=== PATIENT | female | born 1980 | race Caucasian/White ===

== ENCOUNTER 2016-11-06 16:46 | Emergency (ER) | payer OTHER ==
[2016-11-06 17:13] VITALS: BP 116/66
--- NOTE | 2016-11-06 18:03 | UC ---
Ear Complaint HPI - HPI Summary HPI Summary: right ear discomfort and vertigo. Started a few days ago. Similar symptoms in past with OM. She has noted yellowish drainage on Q-tip. No fever. MIld ST. Room spins when she turns head to the left. - History of Current Complaint Chief Complaint: UCGeneralIllness Stated Complaint: DIZZY,EAR PAIN Time Seen by Provider: 11/06/16 17:51 Hx Obtained From: Patient, Family/Cooler Supervisor Hx Last Menstrual Period: n/a ?: No Onset/Duration: Gradual Onset, Lasting Days - 2 Severity Initially: Mild Severity Currently: Mild Aggravating Factors: Nothing Alleviating Factors: Nothing Associated Signs/Symptoms: Positive: Discharge - right ear, URI Symptoms - mild ST. Negative: Hearing Loss, Foreign Body Sensation, Trauma to Ear, Swelling @ - Allergies/Home Medications Allergies/Adverse Reactions: Allergies Allergy/AdvReac Type Severity Reaction Status Date / Time Latex Allergy Intermediate Hives Verified 11/06/16 17:13 Morphine Allergy Hives Verified 11/06/16 17:13 NSAIDs Allergy Unknown Verified 11/06/16 17:13 Reaction Details Aspartame AdvReac Intermediate Vomiting Verified 11/06/16 17:13 Erythromycin AdvReac VOMITING/DI Verified 11/06/16 17:13 ARRHEA avoids ibuprofen Allergy See Comment Uncoded 11/06/16 17:13 PMH/Surg Hx/FS Hx/Imm Hx Cardiovascular History Of: Reports: Hypertension - gestational Respiratory History Of: Reports: Asthma - Surgical History Surgical History: Yes Surgery Procedure, Year, and Place: SINUS SURGERY, CSECTION, DISC NEOPLASTY, gallbladder; 01/19/14 IUD removed, uterine polypectomy, D and C; hysterectomy 2013, Gastric bypass 05/17 - Family History Known Family History: Positive: Hypertension - Social History 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 Psychological: Negative All Other Systems Reviewed And Are Negative: Yes Physical Exam Triage Information Reviewed: Yes Appearance: Well-Appearing, No Pain Distress, Well-Nourished Vital Signs: Initial Vital Signs Temp 97.9 F 11/06/16 17:09 Pulse 79 11/06/16 17:09 Resp 16 11/06/16 17:09 BP 116/66 11/06/16 17:09 Pulse Ox 100 11/06/16 17:09 Vital Signs Reviewed: Yes Eye Exam: Normal Eyes: Positive: Conjunctiva Clear ENT: Positive: Hearing grossly normal, Pharynx normal, TMs normal, Other: - right canal slightly inflamed and swollen. No drainage in either canal Neck exam: Normal Respiratory Exam: Normal Cardiovascular Exam: Normal Musculoskeletal Exam: Normal Neurological Exam: Normal Psychological Exam: Normal Skin Exam: Normal Ear Complaint Course/Dx - Differential Dx/Diagnosis Provider Diagnoses: right OM Discharge - Discharge Plan Condition: Stable Disposition: HOME Prescriptions: Cephalexin CAP* [Keflex CAP*] 500 mg PO TID #30 cap Meclizine HCl [Meclizine 25] 25 mg PO TID PRN #20 tab PRN Reason: Vertigo Patient Education Materials: Otitis Media (ED) Forms: *Work Release Referrals: Renee Wolf MD [Primary Care Provider] -
== END 2016-11-06 18:04 | disposition home or self-care (01) ==
LOC: UCCORT 16:46
DX: H66.91 Otitis media, unspecified, right ear (principal); Z88.5 Allergy status to narcotic agent; Z88.6 Allergy status to analgesic agent; Z88.1 Allergy status to other antibiotic agents; J45.909 Unspecified asthma, uncomplicated
CPT/HCPCS: 99212; G0463

== ENCOUNTER 2016-12-22 11:37 | Emergency (ER) | payer OTHER ==
[2016-12-22 12:31] VITALS: BP 117/70
--- NOTE | 2016-12-22 13:47 | UC ---
Throat Pain/Nasal Michael HPI - HPI Summary HPI Summary: TWO WEEKS AGO HAD SORE THROAT EAR FULLNESS, RETURNED YESTERDAY WITH LARYNGITIS, EAR PRESSURE; EXPOSED TO STREP NO FEVER - History of Current Complaint Chief Complaint: UCRespiratory Stated Complaint: SORE THROAT Time Seen by Provider: 12/22/16 12:31 Hx Obtained From: Patient Hx Last Menstrual Period: n/a Onset/Duration: Sudden Onset, Lasting Weeks, Worse Since - YESTERDAY Cough: None Associated Signs & Symptoms: Positive: Dysphagia, Sinus Discomfort - Allergies/Home Medications Allergies/Adverse Reactions: Allergies Allergy/AdvReac Type Severity Reaction Status Date / Time Latex Allergy Intermediate Hives Verified 12/22/16 12:32 Cephalexin Allergy See Comment Verified 12/22/16 12:32 Morphine Allergy Hives Verified 12/22/16 12:32 NSAIDs Allergy Unknown Verified 12/22/16 12:32 Reaction Details Aspartame AdvReac Intermediate Vomiting Verified 12/22/16 12:32 Erythromycin AdvReac VOMITING/DI Verified 12/22/16 12:32 ARRHEA avoids ibuprofen Allergy See Comment Uncoded 12/22/16 12:32 PMH/Surg Hx/FS Hx/Imm Hx Previously Healthy: Yes Cardiovascular History Of: Reports: Hypertension - gestational Respiratory History Of: Reports: Asthma - Surgical History Surgical History: Yes Surgery Procedure, Year, and Place: SINUS SURGERY, CSECTION, DISC NEOPLASTY, gallbladder; 01/19/14 IUD removed, uterine polypectomy, D and C; hysterectomy 2013, Gastric bypass 05/17 - Family History Known Family History: Positive: Hypertension - Social History Occupation: Employed Full-time Lives: With Family Alcohol Use: Rare Substance Use Type: Excessive Caffeine Smoking Status (MU): Never Smoked Tobacco Household Exposure Type: Cigarettes - Immunization History Most Recent Influenza Vaccination: none Review of Systems Constitutional: Negative Skin: Negative Eyes: Negative ENT: Sore Throat, Ear Ache Respiratory: Negative Cardiovascular: Negative Gastrointestinal: Negative Genitourinary: Negative Motor: Negative Neurovascular: Negative Musculoskeletal: Negative Neurological: Negative Psychological: Negative All Other Systems Reviewed And Are Negative: Yes Physical Exam Triage Information Reviewed: Yes Appearance: Well-Appearing, No Pain Distress, Well-Nourished Vital Signs: Initial Vital Signs Temp 97.3 F 12/22/16 12:28 Pulse 64 12/22/16 12:28 Resp 16 12/22/16 12:28 BP 117/70 02/19/17 12:28 Pulse Ox 100 12/22/16 12:28 Vital Signs Reviewed: Yes Eye Exam: Normal ENT: Positive: Pharyngeal erythema, TM bulging, TM dull, TM red Dental Exam: Normal Neck: Positive: Supple, Tenderness @ - AT BILAT ANT CERVICAL CHAIN LNS, Enlarged Nodes @ - BILAT ANTERIOR CERVICAL LN. Negative: Nuchal Rigidity Respiratory Exam: Normal Respiratory: Positive: Chest non-tender, Lungs clear, Normal breath sounds, No respiratory distress, No accessory muscle use Cardiovascular Exam: Normal Cardiovascular: Positive: RRR, No Murmur, Pulses Normal, Brisk Capillary Refill Abdominal Exam: Normal Abdomen Description: Positive: Nontender, No Organomegaly Musculoskeletal Exam: Normal Musculoskeletal: Positive: Strength Intact, ROM Intact Neurological Exam: Normal Psychological Exam: Normal Psychological: Positive: Normal Response To Family Skin Exam: Normal Throat Pain/Nasal Course/Dx - Differential Dx/Diagnosis Differential Diagnosis/HQI/PQRI: Otitis Media, Peritonsillar Abscess, Pharyngitis, Sinusitis, URI Provider Diagnoses: SINUSITIS. LARYNGITIS. BILATERAL OTITIS SEROUS Discharge - Discharge Plan Condition: Stable Disposition: HOME Prescriptions: Amoxicillin/Clavulanate TAB* [Augmentin TAB 875*] 875 mg PO BID #20 tab Patient Education Materials: Sinusitis (ED), Laryngitis (ED), Serous Otitis Media (ED) Referrals: Renee Wolf MD [Primary Care Provider] -
== END 2016-12-22 14:00 | disposition home or self-care (01) ==
LOC: UCCORT 11:37
DX: J32.9 Chronic sinusitis, unspecified (principal); J04.0 Acute laryngitis; H65.93 Unspecified nonsuppurative otitis media, bilateral; Z88.6 Allergy status to analgesic agent; Z88.1 Allergy status to other antibiotic agents; Z88.5 Allergy status to narcotic agent; Z98.84 Bariatric surgery status; Z90.49 Acquired absence of other specified parts of digestive tract; Z77.22 Contact with and (suspected) exposure to environmental tobacco smoke (acute) (chronic)
CPT/HCPCS: 99212; G0463

== ENCOUNTER 2018-01-12 10:00 | Emergency (ER) | payer OTHER ==
[2018-01-12 10:55] VITALS: BP 133/82
--- NOTE | 2018-01-12 11:37 | ED ---
Back Pain - HPI Summary HPI Summary: 37 yr old female with low back pain. Onset of pain this morning upon waking up. She has a history of low back pain, sciatic pain in the past. She has a history of morbid obesity that was corrected with bariatric surgery. The patient complains of pain that is is moderate/severe, low back that radiates down the back of the left leg into the calf, but today also to the left anterior thigh which is a new feature for her. She denies bowel or bladder incontinence. No falls or injuries. She had prior disk surgery over a decade ago in [place]. - History of Current Complaint Chief Complaint: UCLowerExtremity Stated Complaint: BACK PAIN Time Seen by Provider: 01/12/18 11:00 Hx Last Menstrual Period: HYSTERECTOMY Pain Intensity: 8 - Allergies/Home Medications Allergies/Adverse Reactions: Allergies Allergy/AdvReac Type Severity Reaction Status Date / Time MS Latex [Latex] Allergy Intermediate Hives Verified 12/22/16 12:32 MS Cephalexin [Cephalexin] Allergy See Comment Verified 12/22/16 12:32 MS Morphine [Morphine] Allergy Hives Verified 12/22/16 12:32 MS NSAIDs [NSAIDs] Allergy Unknown Verified 12/22/16 12:32 Reaction Details MS Aspartame [Aspartame] AdvReac Intermediate Vomiting Verified 12/22/16 12:32 MS Erythromycin AdvReac VOMITING/DI Verified 12/22/16 12:32 [Erythromycin] ARRHEA avoids ibuprofen Allergy See Comment Uncoded 12/22/16 12:32 Home Medications: Home Medications Back Aid 01/12/18 [History] PMH/Surg Hx/FS Hx/Imm Hx Cardiovascular History: Reports: Hx Hypertension - gestational Respiratory History: Reports: Hx Asthma - Surgical History Surgery Procedure, Year, and Place: SINUS SURGERY, CSECTION, DISC NEOPLASTY, gallbladder; 01/19/14 IUD removed, uterine polypectomy, D and C; hysterectomy 2013, Gastric bypass 05/17 Infectious Disease History: No Infectious Disease History: Denies: Traveled Outside the [place] in Last 30 Days - Family History Known Family History: Positive: Hypertension - Social History Alcohol Use: Rare Substance Use Type: Reports: None Smoking Status (MU): Never Smoked Tobacco Review of Systems Constitutional: Negative Positive: Other - back apin Negative: Numbness All Other Systems Reviewed And Are Negative: Yes Physical Exam Triage Information Reviewed: Yes Vital Signs On Initial Exam: Initial Vitals Temp Pulse Resp BP Pulse Ox 97.0 F 69 16 133/82 100 01/12/18 10:49 01/12/18 10:49 01/12/18 10:49 01/12/18 10:49 01/12/18 10:49 Vital Signs Reviewed: Yes Appearance: Positive: Well-Appearing, No Pain Distress Skin: Positive: Warm, Skin Color Reflects Adequate Perfusion Head/Face: Positive: Normal Head/Face Inspection Eyes: Positive: EOMI Neck: Positive: Nontender Respiratory/Lung Sounds: Positive: Clear to Auscultation, Breath Sounds Present Cardiovascular: Positive: RRR Musculoskeletal: Positive: Other - positive straight leg left lower extremity. No focal TLS tenderness. No CVA tenderness. Neurological: Positive: Sensory/Motor Intact, Alert, Oriented to Person Place, Time, CN Intact II-III, Normal Gait, Speech Normal Psychiatric: Positive: Normal - Arvilla Coma Scale Best Eye Response: 4 - Spontaneous Best Motor Response: 6 - Obeys Commands Best Verbal Response: 5 - Oriented Coma Scale Total: 15 Diagnostics - Vital Signs Vital Signs Temp Pulse Resp BP Pulse Ox 01/12/18 10:49 97.0 F 69 16 133/82 100 - Laboratory Lab Statement: Any lab studies that have been ordered have been reviewed, and results considered in the medical decision making process. Back Pain Course/Dx - Course Course Of Treatment: 37 yr old with new feature to her back pain, and no MRI in many years. I have told her to go to the ER for further evaluation now. - Diagnoses Provider Diagnoses: Back pain Discharge - Discharge Plan Condition: Good Disposition: HOME Patient Education Materials: Back Pain (ED) Referrals: Renee Wolf MD [Primary Care Provider] - 1 Day Additional Instructions: You should go to the ER now for further evaluation of your back pain. You need MRI done.
== END 2018-01-12 11:35 | disposition home or self-care (01) ==
LOC: UCCORT 10:00
DX: M54.5 Low back pain (principal); J45.909 Unspecified asthma, uncomplicated; Z90.710 Acquired absence of both cervix and uterus; Z98.84 Bariatric surgery status; Z90.49 Acquired absence of other specified parts of digestive tract; Z88.5 Allergy status to narcotic agent; Z88.6 Allergy status to analgesic agent; Z88.1 Allergy status to other antibiotic agents; Z91.040 Latex allergy status
CPT/HCPCS: 99212; G0463

== ENCOUNTER 2018-02-18 12:36 | Emergency (ER) | payer OTHER ==
[2018-02-18 13:26] VITALS: BP 110/57
--- NOTE | 2018-02-18 13:57 | UC ---
Complaint Female HPI - HPI Summary HPI Summary: Starting today she has had urinary frequency, urgency and hematuria. No flank pain, fevers or vomiting. No frequent UTIs. No vaginal discharge. - History Of Current Complaint Chief Complaint: UCGU Stated Complaint: URINARY Time Seen by Provider: 02/18/18 13:42 Hx Obtained From: Patient Hx Last Menstrual Period: 2013 Onset/Duration: Gradual Onset, Lasting Hours, Lasting Weeks Timing: Constant, Lasting Hours Severity Initially: Moderate Severity Currently: Moderate Pain Intensity: 2 Aggravating Factor(s): Urination Alleviating Factor(s): Nothing Associated Signs And Symptoms: Negative: Fever, Back Pain, Vaginal Bleeding/ Discharge, Vaginal Discharge, Nausea, Vomiting(# Of Episodes =) - Allergies/Home Medications Allergies/Adverse Reactions: Allergies Allergy/AdvReac Type Severity Reaction Status Date / Time MS Latex [Latex] Allergy Intermediate Hives Verified 12/22/16 12:32 MS Cephalexin [Cephalexin] Allergy See Comment Verified 12/22/16 12:32 MS Morphine [Morphine] Allergy Hives Verified 12/22/16 12:32 MS NSAIDs [NSAIDs] Allergy Unknown Verified 12/22/16 12:32 Reaction Details MS Aspartame [Aspartame] AdvReac Intermediate Vomiting Verified 12/22/16 12:32 MS Erythromycin AdvReac VOMITING/DI Verified 12/22/16 12:32 [Erythromycin] ARRHEA avoids ibuprofen Allergy See Comment Uncoded 12/22/16 12:32 PMH/Surg Hx/FS Hx/Imm Hx Previously Healthy: No - Bariatric surgery. - Surgical History Surgical History: Yes Surgery Procedure, Year, and Place: SINUS SURGERY, CSECTION, DISC NEOPLASTY, gallbladder; 01/19/14 IUD removed, uterine polypectomy, D and C; hysterectomy 2013, Gastric bypass 05/17 - Family History Known Family History: Positive: Hypertension - Social History Alcohol Use: Rare Substance Use Type: None Smoking Status (MU): Never Smoked Tobacco Household Exposure Type: Cigarettes - Immunization History Most Recent Influenza Vaccination: none Review of Systems Genitourinary: Dysuria, Hematuria, Frequency, Urgency All Other Systems Reviewed And Are Negative: Yes Physical Exam Triage Information Reviewed: Yes Appearance: Well-Appearing, No Pain Distress, Well-Nourished Vital Signs: Initial Vital Signs Temp 98.4 F 02/18/18 13:18 Pulse 59 04/18/18 13:18 Resp 17 02/18/18 13:18 BP 110/57 02/18/18 13:18 Pulse Ox 100 02/18/18 13:18 Vital Signs Reviewed: Yes Eye Exam: Normal Eyes: Negative: Conjunctiva Clear ENT: Positive: Normal ENT inspection, Hearing grossly normal Neck: Positive: Supple, Nontender, No Lymphadenopathy Respiratory: Positive: Respiratory distress. Negative: Decreased breath sounds , Accessory muscle use Cardiovascular: Positive: No Murmur, Pulses Normal, Brisk Capillary Refill Abdomen Description: Positive: No Organomegaly. Negative: Distended, Guarding Musculoskeletal: Positive: Strength Intact, ROM Intact, No Edema Neurological: Positive: Alert, Muscle Tone Normal. Negative: Fatigued Psychological: Positive: Age Appropriate Behavior Skin: Negative: rashes Complaint Female Dx - Course Course Of Treatment: no signs of systemic signs or symptoms. - Differential Dx/Diagnosis Provider Diagnoses: uti. hematuria. Discharge - Sign-Out/Discharge Documenting (check all that apply): Discharge - Discharge Plan Condition: Good Disposition: HOME Prescriptions: Sulfamethox/Trimethoprim DS* [Bactrim DS 800/160 TAB*] 1 tab PO BID #14 tab Patient Education Materials: Urinary Tract Infection in Women (DC) Referrals: Renee Wolf MD [Primary Care Provider] - Additional Instructions: Return for any worsening symptoms as we discussed. - Billing Disposition and Condition Condition: GOOD Disposition: HOME
--- NOTE | 2018-02-21 07:17 | UC ---
- Progress Note Progress Note: Urine culture negative. Stop bactrim. Discharge - Sign-Out/Discharge Documenting (check all that apply): Discharge - Discharge Plan Condition: Good Disposition: HOME Prescriptions: Sulfamethox/Trimethoprim DS* [Bactrim DS 800/160 TAB*] 1 tab PO BID #14 tab Patient Education Materials: Urinary Tract Infection in Women (DC) Referrals: Renee Wolf MD [Primary Care Provider] - Additional Instructions: Return for any worsening symptoms as we discussed. - Billing Disposition and Condition Condition: GOOD Disposition: HOME
== END 2018-02-18 13:59 | disposition home or self-care (01) ==
LOC: UCCORT 12:36
DX: N39.0 Urinary tract infection, site not specified (principal); R31.9 Hematuria, unspecified; Z32.02 Encounter for pregnancy test, result negative; Z88.6 Allergy status to analgesic agent; Z88.1 Allergy status to other antibiotic agents; Z91.040 Latex allergy status; Z88.5 Allergy status to narcotic agent; Z91.018 Allergy to other foods
CPT/HCPCS: 81003; 84702; 87086; 99212; G0463

== ENCOUNTER 2018-09-03 08:28 | Emergency (ER) | payer BC, OTHER ==
[2018-09-03 08:49] VITALS: BP 116/65
--- NOTE | 2018-09-03 09:17 | ED ---
Adult Trauma - HPI Summary HPI Summary: 37 yr old female with the complaint of facial trauma. Onset of symptoms this morning. She was walking her dog and dog pulled her over. She hit her face. Complains of pain to the left cheek area. She scraped her knees as well, but is able to bear weight with no trouble. No LOC. No neck pain, No focal weakness or numbness. No other complaints. - History of Current Complaint Chief Complaint: UCTrauma Stated Complaint: HEAD INJURY S/P FALL, DIZZY Time Seen by Provider: 09/03/18 08:53 Hx Last Menstrual Period: 2013 Pain Intensity: 10 - Allergy/Home Medications Allergies/Adverse Reactions: Allergies Allergy/AdvReac Type Severity Reaction Status Date / Time aspartame Allergy Vomiting Verified 02/21/18 07:21 cephalexin Allergy GI Upset Verified 02/21/18 07:21 erythromycin base Allergy Nausea And Verified 02/21/18 07:21 Vomiting latex Allergy Hives Verified 02/21/18 07:21 morphine Allergy Hives Verified 02/21/18 07:21 NSAIDS (Non-Steroidal Allergy Unknown Verified 02/21/18 07:21 Anti-Inflamma Reaction Details avoids ibuprofen Allergy See Comment Uncoded 12/22/16 12:32 Home Medications: Home Medications NK [No Home Medications Reported] 09/03/18 [History Confirmed 09/03/18] PMH/Surg Hx/FS Hx/Imm Hx Cardiovascular History: Reports: Hx Hypertension - gestational Respiratory History: Reports: Hx Asthma - Surgical History Surgery Procedure, Year, and Place: SINUS SURGERY, CSECTION, DISC NEOPLASTY, gallbladder; 01/19/14 IUD removed, uterine polypectomy, D and C; hysterectomy 2013, Gastric bypass 05/17 Infectious Disease History: No Infectious Disease History: Denies: Traveled Outside the [place] in Last 30 Days - Family History Known Family History: Positive: Hypertension - Social History Occupation: Employed Full-time Lives: With Family Alcohol Use: Rare Substance Use Type: Reports: None Smoking Status (MU): Never Smoked Tobacco Review of Systems Constitutional: Negative Positive: Other - facial trauma Positive: Other - abrasions knees. All Other Systems Reviewed And Are Negative: Yes Physical Exam Triage Information Reviewed: Yes Vital Signs On Initial Exam: Initial Vitals Temp Pulse Resp BP Pulse Ox 97.2 F 63 14 116/65 100 09/03/18 08:44 09/03/18 08:44 09/03/18 08:44 09/03/18 08:44 09/03/18 08:44 Vital Signs Reviewed: Yes Appearance: Positive: Well-Appearing, No Pain Distress Skin: Positive: Warm, Other - abrasion face, knees. Head/Face: Positive: Other - tenderenss over the left maxilla, and zygoma. Eyes: Positive: EOMI, FAVIOLA ENT: Positive: Pharynx normal, TMs normal Neck: Positive: Nontender Respiratory/Lung Sounds: Positive: Clear to Auscultation, Breath Sounds Present Cardiovascular: Positive: RRR. Negative: Murmur Abdomen Description: Positive: Nontender Musculoskeletal: Positive: Strength/ROM Intact, Other - small abrasion left and right knee. No effusion, no patellar instabilitiy or crepetance. ambulates with steady gait. Neurological: Positive: Sensory/Motor Intact, Alert, Oriented to Person Place, Time, CN Intact II-III, Normal Gait, Finger to Nose, Facial Symmetry, Speech Normal Psychiatric: Positive: Normal - Jose Luis Coma Scale Best Eye Response: 4 - Spontaneous Best Motor Response: 6 - Obeys Commands Best Verbal Response: 5 - Oriented Coma Scale Total: 15 Diagnostics - Vital Signs Vital Signs Temp Pulse Resp BP Pulse Ox 09/03/18 08:44 97.2 F 63 14 116/65 100 - Laboratory Lab Statement: Any lab studies that have been ordered have been reviewed, and results considered in the medical decision making process. - CT max facial ct CT Interpretation Completed By: Radiologist - NAD Adult Trauma Course/Dx - Course Course Of Treatment: 37 yr old female with facial contusion and contusion to knee, and abrasions. She will follow up with PMD regarding tetanus shot since ours have latex tops. - Diagnoses Provider Diagnoses: Abrasion, Contusion of face, Contusion of knee, right, Contusion of knee, left Discharge - Sign-Out/Discharge Documenting (check all that apply): Patient Departure All imaging exams completed and their final reports reviewed: Yes - Discharge Plan Condition: Good Disposition: HOME Patient Education Materials: Contusion in Adults (ED), Abrasion (ED) Referrals: Emilia Villarreal NP [Primary Care Provider] - - Billing Disposition and Condition Condition: GOOD Disposition: Home
--- NOTE | 2018-09-03 10:17 | RAD ---
HISTORY: trauma face COMPARISONS: None TECHNIQUE: Multiple contiguous axial CT scans were obtained of the face without intravenous contrast, with coronal and sagittal multiplanar reformations. FINDINGS: BONES: There is no displaced fracture or dislocation. The orbital rim is intact. The zygomatic arch is intact. The pterygoid plates are intact. ORBITS: The globes are round. The optic nerves are symmetric. The extraocular musculature is normal. There is no post septal or intraconal inflammatory change. There is no retrobulbar hematoma. PARANASAL SINUSES: There is a mucous retention cyst versus polypoid mucosal thickening of the left maxillary sinus. There is mucosal thickening of the right maxillary sinus. The patient is status post bilateral middle turbinectomy, partial ethmoidectomy and maxillary antrectomy. BRAIN AND SOFT TISSUE: Unremarkable. OTHER: None. IMPRESSION: POSTSURGICAL CHANGE TO THE SINUSES. NO FACIAL FRACTURE.
[2018-09-03] MEDS ORDERED: Acetaminophen TAB* 325 MG PO ONE (10:42)
== END 2018-09-03 10:52 | disposition home or self-care (01) ==
LOC: UCCORT 08:28
DX: S00.83XA Contusion of other part of head, initial encounter (principal); S80.02XA Contusion of left knee, initial encounter; S80.01XA Contusion of right knee, initial encounter; W19.XXXA Unspecified fall, initial encounter; Y92.9 Unspecified place or not applicable; Z88.6 Allergy status to analgesic agent; Z88.1 Allergy status to other antibiotic agents; Z91.040 Latex allergy status
CPT/HCPCS: 70486; 99212; A9270-GY; G0463

== ENCOUNTER 2019-11-07 10:39 | Emergency (ER) | payer BC ==
[2019-11-07 11:40] VITALS: BP 109/61
--- NOTE | 2019-11-07 12:30 | UC ---
Throat Pain/Nasal Michael HPI - HPI Summary HPI Summary: 39-year-old female who is had cold symptoms with head congestion and sinus pressure or 5 days. No fever. States she just started having a nonproductive dry cough today. No shortness of breath. - History of Current Complaint Chief Complaint: UCGeneralIllness Stated Complaint: HEADACHE DIZZY SINUS Time Seen by Provider: 11/07/19 11:29 Hx Obtained From: Patient Hx Last Menstrual Period: 2013 ?: No Onset/Duration: Gradual Onset Severity: Mild Pain Intensity: 6 Cough: Nonproductive Associated Signs & Symptoms: Positive: Sinus Discomfort, Nasal Discharge - Allergies/Home Medications Allergies/Adverse Reactions: Allergies Allergy/AdvReac Type Severity Reaction Status Date / Time aspartame Allergy Vomiting Verified 11/07/19 11:40 cephalexin Allergy GI Upset Verified 11/07/19 11:40 erythromycin base Allergy Nausea And Verified 11/07/19 11:40 Vomiting latex Allergy Hives Verified 11/07/19 11:40 morphine Allergy Hives Verified 11/07/19 11:40 NSAIDS (Non-Steroidal Allergy Unknown Verified 11/07/19 11:40 Anti-Inflamma Reaction Details avoids ibuprofen Allergy See Comment Uncoded 11/07/19 11:40 PMH/Surg Hx/FS Hx/Imm Hx Previously Healthy: Yes - Surgical History Surgical History: Yes Surgery Procedure, Year, and Place: SINUS SURGERY, CSECTION, DISC NEOPLASTY, gallbladder; 01/19/14 IUD removed, uterine polypectomy, D and C; hysterectomy 2013, Gastric bypass 05/17 - Family History Known Family History: Positive: Hypertension - Social History Occupation: Employed Full-time Lives: With Family Alcohol Use: Rare Substance Use Type: None Smoking Status (MU): Never Smoked Tobacco Household Exposure Type: Cigarettes - Immunization History Most Recent Influenza Vaccination: none Review of Systems All Other Systems Reviewed And Are Negative: Yes ENT: Positive: Nasal Discharge, Sinus Congestion, Sinus Pain/Tenderness Respiratory: Positive: Cough - Dry nonproductive cough started today. Neurological: Positive: Other - Patient states she had mild dizziness with coughing Is Patient Immunocompromised?: No Physical Exam Triage Information Reviewed: Yes Appearance: Well-Appearing, No Pain Distress, Well-Nourished Vital Signs: Initial Vital Signs Temp 97.7 F 11/07/19 11:35 Pulse 57 11/07/19 11:35 Resp 18 11/07/19 11:35 BP 109/61 11/07/19 11:35 Pulse Ox 100 11/07/19 11:35 Vital Signs Reviewed: Yes Eyes: Positive: Conjunctiva Clear ENT: Positive: Pharynx normal, Nasal congestion - Clear nasal coryza, Nasal drainage, TMs normal, Sinus tenderness - Mild tenderness over the maxillary sinuses bilaterally., Uvula midline Neck: Positive: Supple, Nontender, No Lymphadenopathy Respiratory: Positive: Lungs clear, Normal breath sounds, No respiratory distress, No accessory muscle use Cardiovascular: Positive: RRR, No Murmur, Pulses Normal, Brisk Capillary Refill Musculoskeletal Exam: Normal Neurological Exam: Normal Psychological Exam: Normal Skin Exam: Normal Throat Pain/Nasal Course/Dx - Course Course Of Treatment: Patient is comfortable here and nontoxic. She is to increase fluids and use whatever [id number] medications as directed. No work for 2 days. - Differential Dx/Diagnosis Provider Diagnosis: URI (upper respiratory infection) Discharge ED - Sign-Out/Discharge Documenting (check all that apply): Patient Departure All imaging exams completed and their final reports reviewed: No Studies - Discharge Plan Condition: Good Disposition: HOME Patient Education Materials: Upper Respiratory Infection (ED) Forms: *Work Release Referrals: Emilia Villarreal NP [Primary Care Provider] - Additional Instructions: Increase fluids, [id number] cold medications as directed. Follow up with your primary care provider if no improvement in 2 or 3 days. - Billing Disposition and Condition Condition: GOOD Disposition: Home
== END 2019-11-07 12:37 | disposition home or self-care (01) ==
LOC: UCCORT 10:39
DX: J06.9 Acute upper respiratory infection, unspecified (principal); Z91.02 Food additives allergy status; Z88.1 Allergy status to other antibiotic agents; Z88.6 Allergy status to analgesic agent; Z88.5 Allergy status to narcotic agent; Z91.040 Latex allergy status
CPT/HCPCS: 99211; G0463